=== PATIENT | female | born 1995 | race Caucasian/White ===

== ENCOUNTER 2022-12-24 04:22 | Inpatient (IN) | payer BC ==
[2022-12-24] MEDS: Lactated Ringers 1,000 ML IV SCH ×4 (06:15→19:54)
[2022-12-24] MEDS ORDERED: Lidocaine 1% 50 ML MDV INJECT PRN (06:37)
[2022-12-24] MEDS ORDERED: Sodium Chloride 0.9% 20 ML SDV IV PRN (06:37)
[2022-12-24] MEDS ORDERED: Water For Irrigation,Sterile 1,000 ML Container IRR PRN (06:37)
[2022-12-24] MEDS ORDERED: Methylergonovine 0.2 MG/1 ML Amp IM PRN (06:37)
[2022-12-24] MEDS ORDERED: Sodium Chloride 0.9% 10 ML Syringe FLUSH PRN (06:37)
[2022-12-24] MEDS ORDERED: Ondansetron 4 MG/2 ML SDV IVPUSH PRN (06:37)
[2022-12-24] MEDS ORDERED: Misoprostol 200 MCG Tab PO PRN (06:37)
[2022-12-24] MEDS ORDERED: Butorphanol 1 MG/ML SDV IVPUSH PRN (06:37)
[2022-12-24] MEDS ORDERED: Sodium Chloride 0.9% 2.5 ML Syringe FLUSH PRN (06:37)
[2022-12-24] MEDS ORDERED: Tranexamic Acid 1,000 MG in Sodium Chloride 0.9% 100 ML IV PRN (06:37)
[2022-12-24] MEDS ORDERED: Carboprost Tromethamine 250 MCG/1 ML Amp IM PRN (06:37)
[2022-12-24] MEDS ORDERED: Oxytocin/0.9 % Sodium Chloride 30 UNIT/500 ML BAG IV SCH ×2 (06:45→14:00)
[2022-12-24] MEDS ORDERED: Lidocaine 2% with EPINEPHrine 1:200,000 20 ML SDV ONE (07:30)
[2022-12-24] MEDS ORDERED: Dexmedetomidine 200 MCG/2 ML SDV ONE (07:30)
[2022-12-24] MEDS ORDERED: Ropivacaine/PF 400 MG/200 ML PCA ONE (07:30)
[2022-12-24] MEDS ORDERED: Phenylephrine HCl 0.5 MG/5 ML AMP ONE (07:30)
[2022-12-24] MEDS ORDERED: Phenylephrine HCl 0.5 MG/5 ML AMP IVPUSH PRN (07:39)
[2022-12-24] MEDS ORDERED: ePHEDrine 50 MG/ML SDV IVPUSH PRN ×2 (07:39)
[2022-12-24] MEDS ORDERED: Ropivacaine HCl/PF 400 MG in Premix Bag 1 BAG EPIDUR SCH (07:45)
[2022-12-24] MEDS ORDERED: Vancomycin 2 GM in Sodium Chloride 0.9% 500 ML IV ONE (08:30)
[2022-12-24] MEDS ORDERED: Lanolin 100% Cream 7 GM Tube TOP PRN (21:11)
[2022-12-24] MEDS ORDERED: Ibuprofen 800 MG Tab PO PRN (21:11)
[2022-12-24] MEDS ORDERED: Acetaminophen 500 MG Tab PO PRN ×2 (21:11)
[2022-12-24] MEDS ORDERED: Bisacodyl 10 MG Supp RECTAL PRN (21:11)
[2022-12-24] MEDS ORDERED: Benzocaine/Menthol 20%-0.5% Spray 78 GM Cannister TOP PRN (21:11)
[2022-12-24] MEDS ORDERED: oxyCODONE 5 MG Tab PO PRN (21:11)
[2022-12-24] MEDS ORDERED: Witch Hazel Medicated Pads 40/Jar TOP PRN (21:11)
[2022-12-24] MEDS ORDERED: Docusate Sodium 100 MG Cap PO PRN (21:11)
[2022-12-24] MEDS ORDERED: Ibuprofen 400 MG Tab PO PRN (21:11)
== END 2022-12-25 08:45 | disposition home or self-care (01) | DRG 560 ==
LOC: MW.OBCHECK 04:22 → MW.OB 04:23 → MW.OBCHECK 06:37 → MW.OB 06:37 → OBSVTOIN 21:11 → MW.OB 23:17
PROVIDERS: ADMIT Obstetrics & Gynecology; ATTEND Obstetrics & Gynecology
PROC: 10E0XZZ Delivery of Products of Conception, External Approach (ICD-10-PCS; principal; 2022-12-24)
PROC: 0UQMXZZ Repair Vulva, External Approach (ICD-10-PCS; 2022-12-24)
PROC: 3E0R3BZ Introduction of Anesthetic Agent into Spinal Canal, Percutaneous Approach (ICD-10-PCS; 2022-12-24)
PROC: 00HU33Z Insertion of Infusion Device into Spinal Canal, Percutaneous Approach (ICD-10-PCS; 2022-12-24)
DX: O99.824 Streptococcus B carrier state complicating childbirth (principal); O71.82 Other specified trauma to perineum and vulva; O76 Abnormality in fetal heart rate and rhythm complicating labor and delivery; Z37.0 Single live birth; Z3A.40 40 weeks gestation of pregnancy; Z88.0 Allergy status to penicillin
CPT/HCPCS: 36415; 51702; 59025; 59409; 59414; 82803; 84112; 85014; 85018; 85027; 86592; 86850; 86900; 86901; A9270-GY; J0595; J2370; J2590; J2795; J3370; J3490; J7040; J7120